=== PATIENT | female | born 1970 | race Hispanic/Latino ===

== ENCOUNTER 2017-02-03 17:54 | Emergency (ER) | payer OTHER ==
[~2017-02-03] VITALS: Ht 160 cm; Wt 86.4 kg
[~2017-02-03 17:54] MED LIST: /AUGM875TA OR; /CELE20CA OR; PERC7.5T8 OR
[2017-02-03 19:07] LABS: BASO % 0.4 % (0.0-1.0); EOS # 0.2 K/mm3 (0.0-0.50); EOS % 2.4 % (0.0-3.0); LARGE UNSTAINED CELL # 0.2 K/mm3 (0.0-0.4); LARGE UNSTAINED CELL % 1.8 % (0.0-4.0); LYMPH % 10.8 % (24.0-44.0); MEAN CORPUSCULAR HGB CONC 36.5 g/dl (32.0-36.5); MEAN CORPUSCULAR VOLUME 90.3 fl (80.0-96.0); MONO # 0.5 K/mm3 (0.0-0.8); MONO % 4.9 % (0.0-5.0); NEUTROPHILS # 7.5 K/mm3 (1.8-7.7); NEUTROPHILS % 79.8 % (36.0-66.0); PLATELET COUNT, AUTOMATED 261 k/mm3 (150-450); RED CELL DISTRIBUTION WIDTH 12.3 % (11.5-14.5); WHITE BLOOD COUNT 9.4 K/mm3 (4.0-10.0)
[2017-02-03 19:35] LABS: ANION GAP 8 MEQ/L (8-16); BLOOD UREA NITROGEN 10 MG/DL (7-18); CALCIUM LEVEL 9.1 MG/DL (8.5-10.1); CARBON DIOXIDE LEVEL 27 MEQ/L (21-32); CHLORIDE LEVEL 107 MEQ/L (98-107); CREATININE FOR GFR 0.73 MG/DL (0.55-1.02); GLOMERULAR FILTRATION RATE > 60.0 (>58); GLUCOSE, FASTING 88 MG/DL (70-105); POTASSIUM SERUM 3.8 MEQ/L (3.5-5.1); SODIUM LEVEL 142 MEQ/L (136-145)
--- NOTE | 2017-02-03 19:49 | REP ---
CHEST X-RAY, PA AND LATERAL: 02/03/2017. Clinical history: Chest pain of 46-year-old female. Findings: Two views without prior studies show the lung pressley well inflated and without infiltrate, effusion, atelectasis or mass. No pneumothorax, pleural thickening or apical scarring. The heart is not enlarged. There is no vascular redistribution or pulmonary edema. The aorta and airway intact. Bony thorax unremarkable. No compression deformity in the spine or other focal bone abnormality. There is no pneumomediastinum. Impression: 1. No acute cardiopulmonary change. Signed by Patrice Jenkins MD 02/03/2017 08:10 P
[2017-02-03] MEDS ORDERED: LR 1,000 ML IV ONE (20:30)
[2017-02-03] MEDS ORDERED: ISOVUE-370 76% 100ML VIAL (Q9967) As Ordered ONE (21:04)
--- NOTE | 2017-02-03 21:50 | REPUSA ---
HISTORY: R/O PE. TECHNIQUE: CTA protocol for PE with axial CT imaging of chest, with sagittal and coronal reformatted imaging with intravenous contrast enhancement. FINDINGS: Thoracic aorta is normal with no evidence of aneurysm or dissection. Pulmonary arteries are well opacified with contrast with no evidence of pulmonary embolism. No vascul ar abnormality is seen in the mediastinum or brisa. Mediastinal windows demonstrate no mediastinal pathologically enlarged lymph nodes, mass lesions, or abnormal mediastinal fluid collection seen. Lung windows demonstrate clear lungs with no pulmonary mass lesions, infiltrates, pneumothorax, or pl eural effusions. Bone windows demonstrate no detectable evidence of bone fracture or destructive bony lesion in the ch est. No chest wall abnormality is seen. IMPRESSION: Negative CT of chest as discussed above with no evidence of pulmonary embolism.
[2017-02-03 21:59] VITALS: BP 153/88
[2017-02-03] MEDS ORDERED: LEVA1TAB2 PO (22:04)
--- NOTE | 2017-02-04 08:27 | ECGEPIP ---
Stationary ECG Study [facility] - ED Test Date: 2017-02-03 Pat Name: EDNA ELAINE Department: Room: - Gender: F Pan Operator: adam : 1970 Requested By: FRANSISCO Bolton Order Number: [id number] Reading MD: Margret Bar Measurements Intervals [place] Rate: 102 P: 66 WA: 133 QRS: 8 QRSD: 92 T: 51 QT: 348 QTc: 455 Interpretive Statements SINUS TACHYCARDIA ABNORMAL RHYTHM ECG NO PRIOR FOR COMPARISON Electronically Signed On 02-04-2017 8:26:53 EDT by Margret Bar
== END 2017-02-03 22:22 | disposition home or self-care (01) ==
LOC: M ED 17:54
DX: J20.9 Acute bronchitis, unspecified (principal); J06.9 Acute upper respiratory infection, unspecified; R07.89 Other chest pain
CPT/HCPCS: 36415; 71020; 71275; 80048; 82550; 82553; 83880; 85025; 85379; 86140; 87070; 87205; 87486; 87581; 87633; 87798; 93005; 93041; 94760; 99285; Q9967

== ENCOUNTER 2017-08-04 10:16 | Outpatient (RCR) | payer OTHER | END 2017-08-14 | LOC: M ST 10:16 | DX: Z51.89 Encounter for other specified aftercare (principal); R49.1 Aphonia | CPT/HCPCS: 92507 ==

== ENCOUNTER 2017-08-18 11:13 | Outpatient (RCR) | payer OTHER | END 2017-09-13 | LOC: M ST 11:13 | DX: R49.0 Dysphonia (principal) | CPT/HCPCS: 92507 ==